=== PATIENT | female | born 1945 | race Caucasian/White ===

== ENCOUNTER 2023-01-18 13:26 | Emergency (ER) | payer MEDICARE ==
[2023-01-18] MEDS ORDERED: Lidocaine 1% w/Epinephrine 1:100K 20 ML VIAL ONE (14:58)
[2023-01-18] MEDS ORDERED: Acetaminophen 325 MG TAB ONE (14:58)
[2023-01-18] MEDS ORDERED: Bacitracin 1 PK ONE (14:58)
[2023-01-18] MEDS ORDERED: Boostrix 0.5 ML (Tdap) VIAL (>/=7 yrs of age) ONE (14:58)
== END 2023-01-18 16:04 | disposition home or self-care (01) ==
LOC: MADERS 13:26
DX: S01.01XA Laceration without foreign body of scalp, initial encounter (principal); S60.311A Abrasion of right thumb, initial encounter; M25.561 Pain in right knee; Z23 Encounter for immunization; W19.XXXA Unspecified fall, initial encounter
CPT/HCPCS: 12001; 70450; 72125; 90471; 90715